=== PATIENT | female | born 1980 | race Caucasian/White ===

== ENCOUNTER 2021-02-01 00:46 | Emergency (ER) | payer OTHER ==
[~2021-02-01] VITALS: Ht 172.7 cm; Wt 106.6 kg
[2021-02-01] MEDS ORDERED: ZOFRAN4 MG SL (00:51)
[2021-02-01] MEDS ORDERED: VENTOLIN HFA18 GM INH (00:51)
[2021-02-01] MEDS ORDERED: DECADRON4 M1 PO (00:51)
== END 2021-02-01 01:16 | disposition home or self-care (01) ==
LOC: ER 00:49
DX: R06.00 Dyspnea, unspecified (principal); R05 Cough; U07.1 COVID-19
CPT/HCPCS: 99282